=== PATIENT | female | born 1960 | race Two or more races ===

== ENCOUNTER 2022-10-09 21:38 | Inpatient (IN) | payer BC ==
[2022-10-09 21:49] VITALS: BMI 24.3
[2022-10-09] MEDS ORDERED: ASPIRIN 81 MG CHEWABLE TABLETS PO ONE (22:25)
[2022-10-09 22:42] LABS: BASO % 0.6 % (0-2.0); EOS % 0.5 % (0-4.5); HEMATOCRIT 35.8 % (32.4-45.2); HEMOGLOBIN 11.7 GM/dL (10.7-15.3); LYMPH % 15.4 % (8-40); MCH 24.7 pg (25.7-33.7); MCHC 32.8 g/dl (32.0-36.0); MEAN CELL VOLUME 75.2 fl (80-96); MEAN PLT VOLUME 8.6 fl (7.5-11.1); MONO % 6.5 % (3.8-10.2); PLATELET COUNT 237 10^3/uL (134-434); RBC 4.76 M/mm3 (3.60-5.2); RDW 14.7 % (11.6-15.6); WHITE BLOOD COUNT 9.5 K/mm3 (4.0-10.0)
[2022-10-09] MEDS ORDERED: ASPIRIN 81 MG CHEWABLE TABLETS ONE (23:00)
[2022-10-10 00:10] LABS: CHLORIDE 95 mmol/L (98-107); SODIUM 132 mmol/L (136-145)
[2022-10-10 00:12] LABS: CALCIUM 9.4 mg/dL (8.5-10.1)
[2022-10-10 00:13] LABS: ALBUMIN 3.8 g/dl (3.4-5.0); ANION GAP 10 MMOL/L (8-16); BLOOD UREA NITROGEN 22.6 mg/dL (7-18); CO2 27 mmol/L (21-32); GLUCOSE,RANDOM 150 mg/dL (74-106); MAGNESIUM 1.6 mg/dL (1.8-2.4)
[2022-10-10 00:16] LABS: CREATININE 0.8 mg/dL (0.55-1.3); PHOSPHOROUS 2.7 mg/dL (2.5-4.9); SGOT/AST 36 U/L (15-37); SGPT/ALT 27 U/L (13-61)
[2022-10-10 00:17] LABS: TOT PROT 8.1 g/dl (6.4-8.2)
[2022-10-10 00:18] LABS: BILIRUBIN,TOTAL 0.2 mg/dL (0.2-1)
[2022-10-10 00:19] LABS: ALK PHOS 58 U/L (45-117)
[2022-10-10] MEDS ORDERED: METOPROLOL TARTRATE 25 MG TABLET (FP) PO ONE (00:25)
[2022-10-10] MEDS ORDERED: METOPROLOL TARTRATE 25 MG TABLET (FP) ONE ×2 (00:29→09:29)
[2022-10-10 00:59] LABS: INR 1.07 (0.83-1.09); PROTHROMBIN TIME (PATIENT) 12.4 SEC (9.7-13.0)
[2022-10-10 01:02] LABS: ACTIVATED PTT 36.2 SECONDS (25.2-36.5)
[2022-10-10] MEDS ORDERED: HEPARIN INFUSION - 25,000 UNITS/500 ML INFUS.BAG IVPB ONE (01:13)
[2022-10-10] MEDS ORDERED: HEPARIN - 25,000 UNIT in SODIUM CHLORIDE 495 ML IV SCH (01:15)
[2022-10-10] MEDS ORDERED: HEPARIN NA (PORCINE) 5,000 UNITS/ML 1ML VIAL IVPUSH ONE (01:32)
[2022-10-10] MEDS ORDERED: HEPARIN NA (PORCINE) 5,000 UNITS/ML 1ML VIAL ONE (01:37)
[2022-10-10] MEDS ORDERED: NITROGLYCERIN 2% OINTMENT - 1GM PACKET TD ONE (02:02)
[2022-10-10] MEDS ORDERED: MAGNESIUM SULF 50% (8.12 MEQ/2 ML-1 GM VIAL) IVPB ONE (02:13)
[2022-10-10] MEDS ORDERED: MAGNESIUM 1GM/D5W 100ML - 100 ML IVPB IVPB ONE (02:13)
[2022-10-10] MEDS ORDERED: MAGNESIUM 1GM/D5W - 1 GM/100 ML IVPB IVPB ONE (02:37)
[2022-10-10] MEDS ORDERED: NITROGLYCERIN SUBLINGUAL 1/150 0.4 MG TAB SL ONE (04:52)
[2022-10-10] MEDS ORDERED: LEVOTHYROXINE NA 25 MCG TABLET (FP) PO SCH (07:00)
[2022-10-10 07:24] LABS: HEMATOCRIT 34.3 % (32.4-45.2); HEMOGLOBIN 11.3 GM/dL (10.7-15.3); MCH 24.6 pg (25.7-33.7); MCHC 32.8 g/dl (32.0-36.0); MEAN PLT VOLUME 8.8 fl (7.5-11.1); PLATELET COUNT 242 10^3/uL (134-434); RBC 4.58 M/mm3 (3.60-5.2); RDW 14.7 % (11.6-15.6); WHITE BLOOD COUNT 7.8 K/mm3 (4.0-10.0)
[2022-10-10] MEDS ORDERED: CLOPIDOGREL BISULFATE 300 MG TABLET PO ONE (07:40)
[2022-10-10 07:48] VITALS: TEMP 98.6
[2022-10-10] MEDS: INSULIN SLIDING SCALE (NOVOLOG) 1 VIAL SQ SCH ×2 (07:58→11:07)
[2022-10-10] MEDS ORDERED: CLOPIDOGREL BISULFATE 300 MG TABLET ONE (07:59)
[2022-10-10] MEDS ORDERED: LEVOTHYROXINE NA 25 MCG TABLET (FP) ONE (07:59)
[2022-10-10 08:52] LABS: CALCIUM 9.3 mg/dL (8.5-10.1)
[2022-10-10 08:53] LABS: ALBUMIN 3.5 g/dl (3.4-5.0)
[2022-10-10 08:56] LABS: TOT PROT 7.6 g/dl (6.4-8.2)
[2022-10-10 08:57] LABS: BILIRUBIN,TOTAL 0.3 mg/dL (0.2-1)
[2022-10-10 09:06] LABS: BLOOD UREA NITROGEN 18.4 mg/dL (7-18); CREATININE 0.7 mg/dL (0.55-1.3)
[2022-10-10] MEDS ORDERED: ASPIRIN COATED 81 MG TABLET.EC ONE (09:29)
[2022-10-10] MEDS ORDERED: METOPROLOL TARTRATE 25 MG TABLET (FP) PO SCH ×2 (10:00)
[2022-10-10] MEDS ORDERED: LOSARTAN POTASSIUM 50 MG TABLET PO SCH (10:00)
[2022-10-10] MEDS ORDERED: ASPIRIN COATED 81 MG TABLET.EC PO SCH (10:00)
[2022-10-10 15:11] VITALS: BP 95/79; PULSE 112; RESP 16
[2022-10-10] MEDS ORDERED: ATORVASTATIN CA 40 MG TABLET (FP) PO SCH (22:00)
== END 2022-10-10 15:09 | disposition short-term general hospital (02) | DRG 282 ==
LOC: JER 21:38 → JERBED 10-10 02:22
PROVIDERS: ADMIT Internal Medicine; ATTEND Internal Medicine
DX: I21.4 Non-ST elevation (NSTEMI) myocardial infarction (principal); R07.9 Chest pain, unspecified; I10 Essential (primary) hypertension; E78.5 Hyperlipidemia, unspecified; E11.9 Type 2 diabetes mellitus without complications; E03.9 Hypothyroidism, unspecified
CPT/HCPCS: 0241U-QW; 36415; 71046-TC-FY; 80053; 80061; 82962; 83036; 83735; 84100; 84443; 84484; 85025; 85027; 85379; 85610; 85730; 93005; 93010; 99285-25; J1644